=== PATIENT | female | born 1985 | race African-American/Black ===

== ENCOUNTER 2019-08-08 17:06 | Outpatient (CLI) | payer OTHER, MEDICAID ==
[2019-08-08 18:18] LABS: APPEARANCE,URINE SLIGHTLY-CLOUDY; BILIRUBIN,URINE NEGATIVE (NEGATIVE); COLOR,URINE YELLOW; GLUCOSE, URINE NEGATIVE (NEGATIVE); KETONES,URINE NEGATIVE (NEGATIVE); LEUKOCYTE ESTERASE,URINE LARGE (NEGATIVE); NITRITE,URINE NEGATIVE (NEGATIVE); PROTEIN,URINE 100 mg/dL (NEGATIVE); URINE SPECIFIC GRAVITY 1.026
[2019-08-08 18:40] LABS: ADD MANUAL MICROSCOPIC YES
[2019-08-08 18:41] LABS: ABSOLUTE EOSINOPHILS # (AUTO) 0.1 10^3/uL (0.0-0.6); ABSOLUTE MONOCYTES (AUTO) 0.6 10^3/uL (0.1-1.4); ABSOLUTE NEUT (AUTO) 6.4 10^3/uL (1.7-8.2); BASOPHILS % (AUTO) 0.3 % (0-2); EOSINOPHILS % (AUTO) 1.4 % (0-6); HEMATOCRIT 32.9 % (36.0-47.0); HEMOGLOBIN 10.8 g/dL (12.0-15.5); LYMPHOCYTES % (AUTO) 21.8 % (13-45); MEAN CORPUSCULAR HEMOGLOBIN 26.6 pg (27.0-33.4); MEAN CORPUSCULAR HGB CONC 32.8 g/dL (32.0-36.0); MEAN CORPUSCULAR VOLUME 81 fl (80-97); MONOCYTES % (AUTO) 6.6 % (3-13); PLATELET COUNT 220 10^3/uL (150-450); RED BLOOD COUNT 4.05 10^6/uL (3.72-5.28); RED CELL DISTRIBUTION WIDTH 16.6 % (11.5-14.0); SEGMENTED NEUTROPHILS % (AUTO) 69.9 % (42-78); TOTAL CELLS COUNTED % (AUTO) 100 %; WHITE BLOOD COUNT 9.1 10^3/uL (4.0-10.5)
[2019-08-08 18:43] LABS: BACTERIA,URINE 2+ /HPF; WBC,URINE 20-30 /HPF
[2019-08-08 18:47] LABS: URINE AMPHETAMINES SCREEN NEGATIVE; URINE BARBITURATES SCREEN NEGATIVE; URINE BENZODIAZEPINES SCREEN NEGATIVE; URINE COCAINE SCREEN NEGATIVE; URINE MARIJUANA (THC) SCREEN NEGATIVE; URINE METHADONE SCREEN NEGATIVE; URINE PHENCYCLIDINE SCREEN NEGATIVE
[2019-08-08 18:51] LABS: URINE CREATININE 304.9 mg/dL (16-327); URINE PROTEIN 8.2 mg/dL (<12)
[2019-08-08 19:04] LABS: ALBUMIN 3.1 g/dL (3.5-5.0); ALKALINE PHOSPHATASE 123 U/L (38-126); ANION GAP 5 (5-19); ASPARTATE AMINO TRANSFERASE 23 U/L (14-36); BILIRUBIN,TOTAL 0.3 mg/dL (0.2-1.3); BLOOD UREA NITROGEN 7 mg/dL (7-20); CALCIUM 8.9 mg/dL (8.4-10.2); CARBON DIOXIDE 25 mmol/L (22-30); CHLORIDE 106 mmol/L (98-107); GLUCOSE 98 mg/dL (75-110); POTASSIUM 3.7 mmol/L (3.6-5.0); TOTAL PROTEIN 5.8 g/dL (6.3-8.2); URIC ACID 5.2 mg/dL (2.5-6.2)
--- NOTE | 2019-08-08 19:07 | Non Stress Test Report ---
Non Stress Test Datetime Report Generated by CPN: 08/08/2019 19:07 DEMOGRAPHIC EGA NST: 38.0 INDICATION Indication for Study: Other Indication for Study (NST) Other: R/U pre-eclampsia VITAL SIGNS Temperature - NST: 98.7 MONITORING Monitor Explained: Monitor Explained; Test Explained; Patient Verbalized Understanding Time on Monitor: 08/08/2019 17:35 Time off Monitor: 08/08/2019 19:00 NST Duration: 85 NST INTERVENTIONS NST Interventions: None Physician Notified NST: C Angela MD BABY A: [id number] BABY A Movement : Present Contraction Frequency : 10-15 FHR Baseline : 145 Accelerations : 15X15 Decelerations : None Variability : Moderate 6-25bpm NST Review: Meets Criteria for Reactive NST NST Review and Verified By : Aiden Pollock RN NST Results: Reactive NST REPORT Report Trigger: Send Report
== END 2019-08-08 19:09 | disposition home or self-care (01) ==
LOC: LC 17:06
PROVIDERS: ATTEND Obstetrics & Gynecology Gynecology
PROC: 4A1HXCZ Monitoring of Products of Conception, Cardiac Rate, External Approach (ICD-10-PCS; principal; 2019-08-08)
DX: O47.1 False labor at or after 37 completed weeks of gestation (principal); Z3A.38 38 weeks gestation of pregnancy
CPT/HCPCS: 36415; 59025; 80053; 80307; 81001; 82570; 83615; 84156; 84550; 85025

== ENCOUNTER 2019-08-16 07:24 | Inpatient (IN) | payer OTHER, MEDICAID ==
[2019-08-16] MEDS ORDERED: MISOPROSTOL 0.2 MG TABLET ONE (08:32)
[2019-08-16] MEDS ORDERED: OXYTOCIN 10 UNIT/ML VIAL ONE (08:32)
[2019-08-16] MEDS ORDERED: PENICILLIN G-K 5 MILLION UNIT VIAL ONE ×3 (08:33→16:03)
[2019-08-16] MEDS ORDERED: LIDOCAINE 1% INJ-PF (10 MG/ML) 30 ML SDV ONE (08:33)
[2019-08-16] MEDS ORDERED: OXYTOCIN/NORMAL SALINE 20 UNIT/1,000 ML RTUINJ ONE (08:36)
[2019-08-16] MEDS ORDERED: RINGERS SOLUTION,LACTATED 1,000 ML IV PRN (08:51)
[2019-08-16] MEDS ORDERED: OXYTOCIN/NORMAL SALINE 20 UNIT/1,000 ML RTUINJ IV PRN ×2 (08:51→18:53)
[2019-08-16] MEDS ORDERED: PENICILLIN G POTASSIUM 5,000,000 UNIT in DEXTROSE 5%-WATER 100 ML IV ONE (08:52)
[2019-08-16] MEDS ORDERED: AZITHROMYCIN INJ 500 MG VIAL IV ONE ×2 (08:58→09:44)
[2019-08-16 09:13] LABS: ABSOLUTE EOSINOPHILS # (AUTO) 0.1 10^3/uL (0.0-0.6); ABSOLUTE LYMPHOCYTES (AUTO) 1.8 10^3/uL (0.5-4.7); ABSOLUTE MONOCYTES (AUTO) 0.5 10^3/uL (0.1-1.4); ABSOLUTE NEUT (AUTO) 6.2 10^3/uL (1.7-8.2); BASOPHILS % (AUTO) 0.4 % (0-2); EOSINOPHILS % (AUTO) 0.7 % (0-6); HEMATOCRIT 32.1 % (36.0-47.0); HEMOGLOBIN 10.6 g/dL (12.0-15.5); LYMPHOCYTES % (AUTO) 20.9 % (13-45); MEAN CORPUSCULAR HEMOGLOBIN 26.9 pg (27.0-33.4); MEAN CORPUSCULAR HGB CONC 32.9 g/dL (32.0-36.0); MEAN CORPUSCULAR VOLUME 82 fl (80-97); MONOCYTES % (AUTO) 6.3 % (3-13); PLATELET COUNT 218 10^3/uL (150-450); RED BLOOD COUNT 3.93 10^6/uL (3.72-5.28); RED CELL DISTRIBUTION WIDTH 16.6 % (11.5-14.0); SEGMENTED NEUTROPHILS % (AUTO) 71.7 % (42-78); TOTAL CELLS COUNTED % (AUTO) 100 %; WHITE BLOOD COUNT 8.6 10^3/uL (4.0-10.5)
[2019-08-16 09:27] LABS: URINE AMPHETAMINES SCREEN NEGATIVE; URINE BARBITURATES SCREEN NEGATIVE; URINE BENZODIAZEPINES SCREEN NEGATIVE; URINE COCAINE SCREEN NEGATIVE; URINE MARIJUANA (THC) SCREEN NEGATIVE; URINE METHADONE SCREEN NEGATIVE; URINE PHENCYCLIDINE SCREEN NEGATIVE
--- NOTE | 2019-08-16 09:27 | Admission Physical ---
Datetime Report Generated by CPN: 08/16/2019 09:27 CURRENT ADMISSION Chief Complaint: Scheduled Induction of Labor Indication for Induction: Other Indication for Induction- Other: polyhydramnios Admit Impression : Term, Intrauterine ; Induction of Labor Admit Plan: Initiate Labor Induction Protocol Admit Plan- Other: +CT, treated 08/12 GHTN Obesity GBS+ polydactyly ALLERGIES Medication Allergies: No Medication Allergies: No Known Allergies (08/16/2019) OBSTETRICAL HISTORY EDC: 08/22/2019 00:00 : 3 Para: 2 Term: 2 Livin Gestational Diabetes: No Rh Sensitization: No Incompetent Cervix: No CAIYT: No Infertility: No ART Treatment: No Uterine Anomaly: No IUGR: No Hx Previous C/S: No Macrosomia: No Hx Loss/Stillborn: No PIH: Yes Hx : No Placenta Previa/Abruption: No Depression/PP Depression: No PTL/PROM: No Post Hemorrhage: No Current Procedures: Ultrasound; NST Obstetrical History Comments: , Male, vaginal, 38 weeks G2-03/31/2015-Female, vaginal 38 weeks G3-Current SEE RECORDS Alcohol: No Marijuana : No Cocaine: No Other Illicit Drugs: No Cigarettes: Never Smoker. [id number] MEDICAL HISTORY Diabetes: Yes Diabetes Type: Gestational Diabetes Blood Transfusion: No Pulmonary Disease (Asthma, TB): No Breast Disease: No Hypertension: Yes [place] Surgery: No Heart Disease: No Hosp/Surgery: Yes Autoimmune Disorder: No Anesthetic Complications: No Kidney Disease: No Abnormal Pap Smear: No Neuro/Epilepsy: No Other Medical Diseases: No Hepatitis/Liver Disease: No Significant Family History: No Varicosities/Phlebitis: No Trauma/Violence : No Thyroid Dysfunction: No Medical History Comments: [id number] PHYSICAL EXAM General: Normal HEENT: Deferred Neurologic: Normal Thyroid: Deferred Heart: Normal Lungs: Normal Breast: Deferred Back: Deferred Abdomen: Normal Genitourinary Exam: Normal Extremities: Normal DTRs: Normal Pelvic Type: Not Done Physical Exam Comments: /-[facility] Vital Signs: Reviewed FETUS A EGA: 39.1 Monitoring: External US FHR- Baseline: 140 Variability: Moderate 6-25bpm Accelerations: 15X15 Admit Comment: azith IV ordered pitocin started plans epidural PLANS FOR LABOR AND DELIVERY Labor and Delivery: None Pain Management: Natural Feeding Preference: Breast Benefit of Breast Feed Discussed: Yes Circumcision: Yes INFORMED CONSENT Assignment: Rita Frias MD Signature: with User ID: [email or web address] : with User ID: [email or web address]
[2019-08-16] MEDS ORDERED: BUPIVACAINE HCL 0.25 % INJ/PF (2.5 MG/1 ML) 30 ML VIAL ONE (11:19)
[2019-08-16] MEDS ORDERED: FENTANYL/BUPIVACAINE/NS/PF 300 MCG/150 ML RTUINJ EPI ONE (11:19)
[2019-08-16] MEDS ORDERED: EPHEDRINE SULFATE INJ 50 MG/1 ML AMPULE ONE (11:19)
[2019-08-16] MEDS: PENICILLIN G POTASSIUM 2,500,000 UNIT in DEXTROSE 5%-WATER 50 ML IV SCH ×2 (12:14→16:00)
[2019-08-16 14:07] LABS: HEMATOCRIT 31.8 % (36.0-47.0); HEMOGLOBIN 10.5 g/dL (12.0-15.5); MEAN CORPUSCULAR HEMOGLOBIN 26.8 pg (27.0-33.4); MEAN CORPUSCULAR HGB CONC 32.9 g/dL (32.0-36.0); MEAN CORPUSCULAR VOLUME 81 fl (80-97); PLATELET COUNT 227 10^3/uL (150-450); RED BLOOD COUNT 3.91 10^6/uL (3.72-5.28); RED CELL DISTRIBUTION WIDTH 16.5 % (11.5-14.0); WHITE BLOOD COUNT 8.6 10^3/uL (4.0-10.5)
[2019-08-16 14:27] LABS: ALBUMIN 2.8 g/dL (3.5-5.0); ALKALINE PHOSPHATASE 128 U/L (38-126); ANION GAP 6 (5-19); ASPARTATE AMINO TRANSFERASE 22 U/L (14-36); BILIRUBIN,DIRECT 0.1 mg/dL (0.0-0.4); BILIRUBIN,TOTAL 0.2 mg/dL (0.2-1.3); BLOOD UREA NITROGEN 5 mg/dL (7-20); CALCIUM 8.9 mg/dL (8.4-10.2); CARBON DIOXIDE 25 mmol/L (22-30); CHLORIDE 105 mmol/L (98-107); GLUCOSE 71 mg/dL (75-110); POTASSIUM 4.4 mmol/L (3.6-5.0); TOTAL PROTEIN 5.4 g/dL (6.3-8.2); URIC ACID 3.8 mg/dL (2.5-6.2)
--- NOTE | 2019-08-16 18:52 | Delivery Summary ---
Del Sum A-C Datetime Report Generated by CPN: 08/16/2019 18:52 DELIVERY PERSONNEL DELIVERY PERSONNEL: [id number] Delivery Doctor:: Siobhan Suarez CNM Labor and Delivery Nurse:: Saadia Ngo RNan/sqq 89(v)15 sonar system journeyman Nurse:: Anya Gómez RN Nursery Nurse:: Karin Javed RN Store Receiving Specialist/REGIONAL OWNER OPERATOR TRUCK DRIVER: Rafy Clementssey, SHRIMP PICKER MATERNAL INFORMATION Delivery Anesthesia: Epidural Medications After Delivery: Pitocin Bolus-Please Comment; Cytotec 1000mcg Per Rectum/Vagina Meds After Delivery Comment: Pitocin 20 units/1000 ml NSS Pitocin 10 units in Uterine Delivery QBL: 800 Delivery QBL Comment: 750 Maternal Complications: Precipitous Labor (<3hrs); Hemorrhage Provider Comments: SVDVM over intact perineum, OA with thick meconium fluid. Shoulders delivered easily followed by body and cord. Vaginal bleeding heavy prior to delivery of placenta. Cord clamped and cut, attempted spont delivery of placenta as it was partially detached. Placenta then manually removed intact. Bleeding initally stabilized then began again. Uterine exploration done, found to be contracted well and empty, bleeding of [place]. Cytotec placed rectally and pitocin bolus infusing. Continued with bimanual massage, Dr Frias to the room for evaluation. Cervix intact and without laceration, [place] bleeding stabilized after pitocin 10mg injected into [place] per Dr. Frias. Mother and baby stable and bleeding stopped upon leaving the room. LABOR SUMMARY EDC: 08/22/2019 00:00 No. Babies in Womb: 1 Attempted: Yes Labor Anesthesia: Epidural LABOR INFORMATION Reason for Induction: Gestational Hypertension; Polyhydramnios Onset of Labor: 08/16/2019 14:17 Complete Dilatation: 08/16/2019 16:01 Cervical Ripening Agents: Cytotec @ 1000 Oxytocin: Induction Group B Beta Strep: positive Antibiotics # of Doses: 3 Antibiotics Time of Last Dose: 1600 Name of Antibiotic Given: penicillin Steroids Given: None Reason Steroids Not Administered: Not Applicable MEMBRANES Membranes Rupture Method: Artificial Rupture of Membranes: 08/16/2019 14:17 Length of Rupture (hr): 1.92 Amniotic Fluid Color: Heavy Meconium Amniotic Fluid Amount: Large STAGES OF LABOR Stage 1 hr: 1 Stage 1 min: 44 Stage 2 hr: 0 Stage 2 min: 11 Stage 3 hr: 0 Stage 3 min: 3 Total Time in Labor hr: 1 Total Time in Labor min: 58 VAGINAL DELIVERY Episiotomy: None Laceration #1: Periurethral Laceration Extension #1: First Degree Laceration Repair: Not Applicable Laceration Repair Note: superficial Sponge Count Correct: N/A CSECTION DELIVERY Primary Indication: N/A Secondary Indication: N/A CSection Incidence: N/A Labor: N/A Elective: N/A CSection Incision: N/A BABY A INFORMATION Delivery Date/Time: 08/16/2019 16:12 Method of Delivery: Vaginal Born in Route : No : N/A Forceps: N/A Vacuum Extraction: N/A Shoulder Dystocia : No PRESENTATION/POSITION BABY A Presentation: Cephalic Cephalic Presentation: Vertex Vertex Position: Right Occipital Anterior Breech Presentation: N/A PLACENTA INFORMATION BABY A Placenta Delivery Time : 08/16/2019 16:15 Placenta Method of Delivery: Manual Removal Placenta Status: Delivered SCORES BABY A Heart Rate 1 min: >100 bpm Resp Effort 1 min: Good Cry Reflex Irritability 1 min: Cough or Sneeze or Pulls Away Muscle Tone 1 min: Active Motion Color 1 min: Body [place], Extremities Blue Resuscitation Effort 1 min: Tactile Stimulation SCORE 1 MIN: 9 Heart Rate 5 min: >100 bpm Resp Effort 5 min: Good Cry Reflex Irritability 5 min: Cough or Sneeze or Pulls Away Muscle Tone 5 min: Active Motion Color 5 min: Body [place], Extremities Blue Resuscitation Effort 5 min: Tactile Stimulation SCORE 5 MIN: 9 INFORMATION BABY A Gestational Age at Delivery: 39.1 Gestational Status: Full Term- 39- 40.6 Weeks Outcome : Liveborn Condition : Stable Infant Sex: Male IDENTIFICATION BABY A Infant Verification Date/Time: 08/16/2019 17:09 ID Band Number: [id number] Mother's Name Verified: Yes Infant RN Verifying Infant: Ish, RN and BOBBY Camejo WEIGHT/LENGTH BABY A Birthweight (gm): 3831 Weight (lb): 8 Weight (oz): 7 Infant Length (in): 21.25 Infant Length (cm): 53.98 CORD INFORMATION BABY A No. Cord Vessels: 3 Nuchal Cord : N/A Cord Blood Taken: Yes-For Storage (Mom's Blood type +) Suction: None ASSESSMENT BABY A Infant Complications: Meconium; Polyhydramnios Physical Findings at Delivery: Extra Digit(s) Infant Respirations: Appears Normal Skin to Skin: Yes Tap And Die Maker Technician/ALS Called : No Care By: Malena Javed RN Transferred To: Remains with Mother SIGNATURES Assignment: Rita Frias MD Signature: with User ID: [email or web address] : with User ID: [email or web address] : I was personally available for consultation and serving as supervising physician for the MLP.
[2019-08-16] MEDS ORDERED: ZOLPIDEM TARTRATE 5 MG TABLET PO PRN (18:53)
[2019-08-16] MEDS ORDERED: MEASLES,MUMPS&RUBELLA VACC/PF 0.5 ML VIAL SUBCUT PRN (18:53)
[2019-08-16] MEDS ORDERED: BENZOCAINE/MENTHOL AEROSOL SPRAY 56 ML TOP PRN (18:53)
[2019-08-16] MEDS ORDERED: DIBUCAINE 1% OINTMENT 56 GM TP PRN (18:53)
[2019-08-16] MEDS ORDERED: DIPH/PERTUSS(ACELL)/TETANUS VAC/PF 0.5 ML SYR (>=10YO) IM PRN (18:53)
[2019-08-16] MEDS ORDERED: ACETAMINOPHEN WITH CODEINE #3 TABLET PO PRN ×2 (18:53)
[2019-08-16] MEDS: FERROUS SULFATE 325 MG TABLET PO SCH (19:14)
[2019-08-16] MEDS: DOCUSATE SODIUM 100 MG CAPSULE PO SCH (19:14)
[2019-08-16] MEDS: IBUPROFEN 800 MG TABLET PO SCH (22:51)
[2019-08-17] MEDS: IBUPROFEN 800 MG TABLET PO SCH ×3 (06:08→21:50)
[2019-08-17 07:50] LABS: HEMATOCRIT 27.7 % (36.0-47.0); HEMOGLOBIN 9.2 g/dL (12.0-15.5); MEAN CORPUSCULAR HEMOGLOBIN 26.9 pg (27.0-33.4); MEAN CORPUSCULAR HGB CONC 33.2 g/dL (32.0-36.0); MEAN CORPUSCULAR VOLUME 81 fl (80-97); PLATELET COUNT 191 10^3/uL (150-450); RED BLOOD COUNT 3.42 10^6/uL (3.72-5.28); RED CELL DISTRIBUTION WIDTH 16.3 % (11.5-14.0); WHITE BLOOD COUNT 13.1 10^3/uL (4.0-10.5)
--- NOTE | 2019-08-17 09:00 | PDOC PROGRESS REPORT ---
Subjective-OB Progress Note for:: 08/17/19 Subjective: Pt doing well, no concerns. She reports light bleeding, reg diet and voiding without difficulty. Physical Exam (OB) Vital Signs: Temp Pulse Resp BP Pulse Ox 97.6 F 74 14 133/67 H 99 08/17/19 07:26 08/17/19 07:26 08/17/19 07:26 08/17/19 07:26 08/17/19 07:26 Intake & Output 08/16/19 08/17/19 08/18/19 06:59 06:59 06:59 Intake Total 1999 Balance 1999 Weight 127.8 kg - PIH/Pre-Eclampsia Headache: Absent - Lochia Lochia Amount: Small 10-25 ml Lochia Color: Rubra/Red - Abdomen Description: Soft Hernia Present: Yes Fundal Description: Firm, Midline Fundal Height: u/u - u/2 Objective-Diagnostic Laboratory: 08/17/19 07:00 08/16/19 13:56 08/16/19 08/16/19 08/16/19 09:08 09:08 13:56 WBC 8.6 8.6 RBC 3.93 3.91 Hgb 10.6 L 10.5 L Hct 32.1 L 31.8 L MCV 82 81 MCH 26.9 L 26.8 L MCHC 32.9 32.9 RDW 16.6 H 16.5 H Plt Count 218 227 Seg Neutrophils % 71.7 Sodium Potassium Chloride Carbon Dioxide Anion Gap BUN Creatinine Est GFR ( Amer) Glucose Uric Acid Calcium Total Bilirubin AST Alkaline Phosphatase Total Protein Albumin Blood Type B POSITIVE Antibody Screen NEGATIVE 08/16/19 08/17/19 13:56 07:00 WBC 13.1 H RBC 3.42 L Hgb 9.2 L Hct 27.7 L MCV 81 MCH 26.9 L MCHC 33.2 RDW 16.3 H Plt Count 191 Seg Neutrophils % Sodium 136.2 L Potassium 4.4 Chloride 105 Carbon Dioxide 25 Anion Gap 6 BUN 5 L Creatinine 0.69 Est GFR ( Amer) > 60 Glucose 71 L Uric Acid 3.8 Calcium 8.9 Total Bilirubin 0.2 AST 22 Alkaline Phosphatase 128 H Total Protein 5.4 L Albumin 2.8 L Blood Type Antibody Screen Assessment and Plan(PN) - Assessment and Plan (1) Encounter for induction of labor Is this a current diagnosis for this admission?: Yes (2) Gestational hypertension Qualifiers: Trimester: third trimester Qualified Code(s): O13.3 - Gestational [-induced] hypertension without significant proteinuria, third trimester Is this a current diagnosis for this admission?: Yes (3) Polyhydramnios Qualifiers: Trimester: third trimester Is this a current diagnosis for this admission?: Yes (4) hemorrhage Qualifiers: hemorrhage type: third-stage Qualified Code(s): O72.0 - Third- stage hemorrhage Is this a current diagnosis for this admission?: Yes - Time Spent with Patient Time with patient: Less than 15 minutes Medications reviewed and adjusted accordingly: Yes - Disposition Anticipated Discharge: Home Within: within 24 hours
[2019-08-17] MEDS: SENNOSIDES/DOCUSATE 8.6-50 MG 1 EACH TABLET PO SCH (10:19)
[2019-08-17] MEDS: PRENATAL VITAMIN W DHA CAPSULE PO SCH (10:19)
[2019-08-17] MEDS: DOCUSATE SODIUM 100 MG CAPSULE PO SCH ×2 (10:20→17:50)
[2019-08-17] MEDS: FERROUS SULFATE 325 MG TABLET PO SCH ×2 (10:20→17:50)
[2019-08-18] MEDS: IBUPROFEN 800 MG TABLET PO SCH ×2 (06:10→15:05)
[2019-08-18 07:43] VITALS: BP 139/71
--- NOTE | 2019-08-18 09:46 | PDOC DISCHARGE SUMMARY ---
Final Diagnosis Discharge Date: 08/18/19 - Final Diagnosis (1) Encounter for induction of labor Is this a current diagnosis for this admission?: Yes (2) Gestational hypertension Is this a current diagnosis for this admission?: Yes (3) Polyhydramnios Is this a current diagnosis for this admission?: Yes (4) hemorrhage Is this a current diagnosis for this admission?: Yes Discharge Data - Discharge Medication Home Medications: Vits96/Iron Fum/Folic [ Tablet] 1 each PO DAILY 08/16/19 Reason(s) for Admission: Induction of Labor, Obstetric Complications, PIH Procedures: NST Intrapartum Procedure(s): Spontaneous Vaginal Delivery - Diagnosis Test Laboratory: Temp Pulse Resp BP Pulse Ox 98.0 F 85 18 139/71 H 98 08/18/19 07:42 08/18/19 07:42 08/18/19 07:42 08/18/19 07:42 08/18/19 07:42 08/16/19 08/16/19 08/16/19 07:44 09:08 13:56 RBC 3.93 3.91 Hgb 10.6 L 10.5 L Hct 32.1 L 31.8 L Urine Opiates Screen NEGATIVE 08/17/19 07:00 RBC 3.42 L Hgb 9.2 L Hct 27.7 L Urine Opiates Screen - Discharge information/Instructions Discharge Activity: Balance Activity w/Rest Discharge Diet: Regular Disposition: HOME, SELF-CARE Follow up with: [facility] in: 4, Weeks
[2019-08-18] MEDS: PRENATAL VITAMIN W DHA CAPSULE PO SCH (11:12)
[2019-08-18] MEDS: DOCUSATE SODIUM 100 MG CAPSULE PO SCH (11:12)
[2019-08-18] MEDS: FERROUS SULFATE 325 MG TABLET PO SCH (11:12)
[2019-08-18] MEDS: SENNOSIDES/DOCUSATE 8.6-50 MG 1 EACH TABLET PO SCH (11:12)
== END 2019-08-18 16:02 | disposition home or self-care (01) | DRG 806 ==
LOC: LR 07:24 → 2N 18:55
PROVIDERS: ADMIT Student in an Organized Health Care Education/Training Program; ATTEND Student in an Organized Health Care Education/Training Program
PROC: 10E0XZZ Delivery of Products of Conception, External Approach (ICD-10-PCS; principal; 2019-08-16)
PROC: 3E033VJ Introduction of Other Hormone into Peripheral Vein, Percutaneous Approach (ICD-10-PCS; 2019-08-16)
PROC: 10907ZC Drainage of Amniotic Fluid, Therapeutic from Products of Conception, Via Natural or Artificial Opening (ICD-10-PCS; 2019-08-16)
DX: O40.3XX0 Polyhydramnios, third trimester, not applicable or unspecified (principal); O72.1 Other immediate postpartum hemorrhage; Z37.0 Single live birth; O13.4 Gestational [pregnancy-induced] hypertension without significant proteinuria, complicating childbirth; O99.214 Obesity complicating childbirth; E66.9 Obesity, unspecified; O99.824 Streptococcus B carrier state complicating childbirth; O62.3 Precipitate labor; O71.82 Other specified trauma to perineum and vulva; Z3A.39 39 weeks gestation of pregnancy
CPT/HCPCS: 36415; 80053; 80307; 83615; 84550; 85025; 85027; 86592; 86850; 86900; 86901; 88307; 94760; J0456; J2540; J2590; J3010; J3490